=== PATIENT | female | born 1960 | race Caucasian/White ===

== ENCOUNTER 2020-03-24 17:00 | Outpatient (CLI) | payer BC ==
[2020-03-24 22:18] LABS: Hemoglobin A1c 9.6 % (4.0-6.0)
[2020-03-25 17:28] LABS: Follow-up Chemistry Comp? YES; Follow-up Result - Chemistry REPORT FAXED
== END 2020-03-24 17:01 | disposition home or self-care (01) ==
LOC: MADLABSP 17:00
DX: E11.43 Type 2 diabetes mellitus with diabetic autonomic (poly)neuropathy (principal); E66.01 Morbid (severe) obesity due to excess calories
CPT/HCPCS: 83036